=== PATIENT | female | born 1985 | race Two or more races ===

== ENCOUNTER → 2024-01-20 | Outpatient (BNVA) | payer MEDICAID, SELFPAY | END | disposition home or self-care (01) | PROVIDERS: PCP Nurse Practitioner Family; Referring Provider Nurse Practitioner Family; Visit Provider Nurse Practitioner Family | DX: Z23 Encounter for immunization (principal); Z30.016 Encounter for initial prescription of transdermal patch hormonal contraceptive device | CPT/HCPCS: 90471; 90686; 99213 ==

== ENCOUNTER → 2024-03-17 | Outpatient (BNVA) | payer MEDICAID, SELFPAY | END | disposition home or self-care (01) | PROVIDERS: PCP Nurse Practitioner Family; Referring Provider Nurse Practitioner Family; Visit Provider Nurse Practitioner Family | DX: Z71.2 Person consulting for explanation of examination or test findings (principal); R73.03 Prediabetes; E78.1 Pure hyperglyceridemia; R94.5 Abnormal results of liver function studies; R68.89 Other general symptoms and signs | CPT/HCPCS: 99212; G0463 ==

== ENCOUNTER → 2024-04-02 | Outpatient (BNVA) | payer MEDICAID, SELFPAY | END | disposition home or self-care (01) | PROVIDERS: PCP Nurse Practitioner Family; Referring Provider Nurse Practitioner Family; Visit Provider Nurse Practitioner Family | DX: N39.0 Urinary tract infection, site not specified (principal) | CPT/HCPCS: 81001; 81025; 96372; 99214; A4216; J0696; J1885 ==

== ENCOUNTER → 2024-04-09 | Outpatient (BNVA) | payer MEDICAID, SELFPAY | END | disposition home or self-care (01) | PROVIDERS: PCP Nurse Practitioner Family; Referring Provider Nurse Practitioner Family; Visit Provider Nurse Practitioner Family | DX: Z71.2 Person consulting for explanation of examination or test findings (principal) | CPT/HCPCS: 99212; G0463 ==

== ENCOUNTER → 2024-04-30 | Outpatient (BNVA) | payer MEDICAID, SELFPAY | END | disposition home or self-care (01) | PROVIDERS: PCP Nurse Practitioner Family; Referring Provider Nurse Practitioner Family; Visit Provider Nurse Practitioner Family | DX: Z71.2 Person consulting for explanation of examination or test findings (principal); D50.8 Other iron deficiency anemias | CPT/HCPCS: 99212; G0463 ==

== ENCOUNTER → 2024-07-20 | Outpatient (BNVA) | payer MEDICAID, SELFPAY | END | disposition home or self-care (01) | PROVIDERS: PCP Nurse Practitioner Family; Referring Provider Nurse Practitioner Family; Visit Provider Nurse Practitioner Family | DX: Z32.01 Encounter for pregnancy test, result positive (principal) | CPT/HCPCS: 81025; 99214 ==

== ENCOUNTER 2024-08-03 13:24 | Outpatient (AMB) | payer MEDICAID, SELFPAY ==
--- NOTE | 2024-08-03 13:43 | AMB.OBINITIA ---
Vital Signs 08/03/24 13:54 Height 1.51 m Height Method Stated Weight 64.92 kg Weight Measurement Method Standing Scale BMI 28.4 BP 115/76 Blood Pressure Source Automatic Cuff Blood Pressure Location Right Upper Arm Position Sitting Respiration 17 Pulse 67 Pulse Source Monitor Temp 97.7 F Temp Source Temporal Artery Scan Pulse Oximetry (%) 98 Oxygen Delivery Method Room Air Allergies/Home Meds Allergies & Medications Allergies No Known Allergies Allergy (Verified 08/03/24 13:56) Medication Reconciliation vit 168-iron 27 mg-folic acid 800 mcg-omega3 235 mg capsule (One-A-Day -1) 1 cap PO QDAY 30 days #30 caps 07/20/24 [Rx Confirmed 08/03/24] Intake Visit Data Collection New Patient or Established: Established Patient (seen at [facility] within 3 years) Reason for Visit:: OBI Seen by Clinical Staff ONLY (RN/MA): No Care Trainer Required: No Do You Feel Safe at Home: Yes Authorities Contacted: N/A PCP or OBGYN visit in last 3 months: Yes Date of Last PCP or OBGYN visit: 07/20/24 Hx Now: Yes Are you currently on any form of Control: No Pain Present Currently: No Pain Scale Used: Pitts-Mccray/Numerical Pain scale:: 0 Smoking Status Smoking Status: Never smoker Questionnaires Covid-19 Vaccine Questionnaire Has patient been vacinated for Covid-19 Have you been vacinated for Covid-19: Yes PHQ-9 PHQ-2 Over the last 2 weeks, how often have you been bothered by any of the following problems? 1. Little interest or pleasure in doing things: not at all 2. Feeling down, depressed, or hopeless: not at all Total score: 0 PHQ-9 3. Trouble falling or staying asleep, or sleeping too much: Not at all 4. Feeling tired or having little energy: Not at all 5. Poor appetite or overeating: Not at all 6. Feeling bad about yourself - or that you are a failure or have let yourself or your family down: Not at all 7. Trouble concentrating on things, such as reading the newspaper or watching television: Not at all 8. Moving or speaking so slowly that other people could have noticed? - Or the opposite - being so fidgety or restless that you have been moving around a lot more than usual: not at all 9. Thoughts that you would be better off or of hurting yourself in some way: Not at all Total score: 0 If you checked off any problems, how difficult have these problems made it for you to do your work, take care of things at home, or get along with other people?: not difficult at all Source: Developed by Drs. Bright Guerra, Rachana Tadeo, Alberto Salazar and colleagues, with an educational hortencia from [employer]. Depression screen completed yes Social History Living Situation History Marital Status: Lives With: Spouse Housing: House Tobacco History Smoking Status: Never smoker Second Hand Smoke Exposure: No Alcohol History Alcohol Intake: Current Alcohol Intake Frequency: holidays/special occasions only Substance Use History Substance Use: NEVER Domestic Abuse History Do You Feel Safe at Home: Yes History of Present Illness HPI Narrative Ptia Jo, a 39-year-old female, , presents for her initial visit. She is approximately 7 weeks based on her last menstrual period of May 25, 2024. The patient reports her is progressing well overall. She experiences some nausea but denies vomiting. Pita mentions having anemia, which was previously diagnosed. She denies any cramping, bleeding, or spotting during this . The patient is currently taking vitamins but reports stopping iron supplementation as advised by a previous provider. Pita's obstetrical history is significant for four full-term vaginal deliveries and one miscarriage. She denies any complications such as gestational diabetes or hypertension in her previous pregnancies. However, she reports a family history of cardiac issues in her daughters - one had tetralogy of Fallot, and another had a heart murmur. Apart from anemia, Pita denies any other medical issues outside of . She appears to be managing her current symptoms well and has not reported any significant impact on her daily functioning. Obstetric History - GTPAL: L4 - Current : - Gestational age: 7 weeks 3 days by ultrasound - Estimated due date: Approximately mid-February 2025 (based on LMP of May 25, 2024) - No current complaints of cramping, bleeding, or spotting - history: - Four previous vaginal deliveries, all resulting in living children - No history of gestational diabetes or hypertension in previous pregnancies Medical History - Anemia (current) Medications and Supplements - vitamins - Iron - Discontinued. Patient was told to stop taking it. Social History - Children: Has 4 children Review of Systems Gastrointestinal: Positive for nausea, negative for vomiting. 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 Reports mild nausea, no vomiting or bleeding. FHx of congenital heart defects (ToF, murmur in daughters). Anemia noted; stopped iron per previous instructions. FHR 162 bpm. Plan: Labs and genetic testing ordered?draw after 9w GA. F/u in 4 weeks with ultrasound. Prescribed vitamins; iron to be reassessed after labs. Referred to [facility] for detailed anatomy scan and echocardiogram due to FHx of CHD. Prescriptions sent to [facility]. Dates for labs and SEVEN written for patient. Corrected Estimated Due Date Summary LMPUnknownEDD by LMP? Ultrasound #112/GA at us [id number] by US #1: 08/22/2024 Ultrasound #[id number] at us [id number] by US #2: 08/22/2024 Final EDD08/22/2024asis for Final EDD12w Sono (confirmed by 15w) Menstrual History Menstrual reliability: unknown Flow: light Menstrual regularity: irregular Monthly: No Age at menarche: 17 On control pills at conception: No OB History : 6 Para: 4 Hx # Pregnancies: 1 Hx Total # of Abortions (Spontaneous & Elective): 1 # of Living Children: 4 Delivery History 1st : Child's name: ASIYA ADAMS date: 04/[birth year]/04 sex: male Gestational age at delivery (weeks): 40 Delivery type: vaginal weight (lbs): 3175.147 g weight (oz): 198.447 g History of depression before or after : No 2nd : Child's name: JOHN ADAMS date: 10/27/07 sex: male Gestational age at delivery (weeks): 38 Delivery type: vaginal weight (lbs): 2267.962 g History of depression before or after : No 3rd : Child's name: PRIMO ADAMS date: 10/29/14 sex: female Gestational age at delivery (weeks): 40 Delivery type: vaginal weight (lbs): 3175.147 g History of depression before or after : No Additional comments: 10YR DAUGHTER HAS HX OF TETRALOGY OF FALLOT 4th : Child's name: JENNIFER ADAMS date: 04/13[birth year]20 sex: female Gestational age at delivery (weeks): 40 Delivery type: vaginal weight (lbs): 3175.147 g History of depression before or after : No Additional comments: 4YR HX OF HEART MURMUR Infection History & Risk Evaluation History of STDs: none HIV risk evaluation: low risk Hepatitis B risk evaluation: low risk Patient or partner has history of Genital Herpes: No Varicella/chicken pox status: unknown Genetic Screening & History Genetic Screening/Teratology Counseling - Includes patient, baby's father, or anyone in either family with: 1. Patient's age 35 years or older as of estimated date of delivery: Yes 2. Thalassemia (Salvadorean, Citizen Of [place], Mediterranean, or Background); MCV less than 80: No 3. Neural Tube Defect (Meningomyelocele, Spina Bifida, or Anencephaly): No 4. Congenital Heart Defect: Yes 5. Down Syndrome: No 6. Maurice-Sachs (Ashkenazi Samaritan, Cajun, Frisian [place]): No 7. Melanie Disease (Ashkenazi Samaritan): No 8. Familial Dysautonomia (Ashkenazi Samaritan): No 9. Sickle Cell Disease or Trait (): No 10. Hemophilia or other blood disorders: No 11. Muscular Dystrophy: No 12. Cystic Fibrosis: No 13. Duane's Chorea: No 14. Mental Retardation/Autism: No 15. Other inherited genetic or chromosomal disorder: No 16. Maternal Metabolic Disorder (EG,TYPE 1 Diabetes, PKU): No 17. Patient or baby's father had a child with defects not listed above: No 18. Recurrent loss or a stillbirth: No 19. Medications (including supplements, vitamins, herbs or otc drugs)/illicit/recreational drugs/alcohol since last menstrual period: No 20. Any other: No Infection History 1. Live with someone with TB or exposed to TB: No 2. Rash or viral illness since last menstrual period: No 3. Hepatitis B,C: No Other (see comments) Source: [employer] Exam General Limitations: no limitations General Appearance: alert, in no apparent distress and comfortable Head Head exam: atraumatic and normocephalic Eye Eye exam: Present normal appearance, PERRL and EOMI Neck Neck exam: Present normal inspection and full ROM Chest Chest inspection: Present normal inspection and symmetric chest wall rise; Absent tenderness Resp Respiratory exam: Present normal lung sounds bilaterally; Absent respiratory distress Card Cardiovascular exam: Present regular rate and normal rhythm Abdominal Abdominal exam: Present soft and normal bowel sounds; Absent tenderness, guarding, rebound or rigidity Neuro Neurological exam: Present alert and oriented X3 Psych Psychiatric exam: Present normal affect Results Objective Imaging: - Date: FriAug 03 2024 - Ultrasound: - Gestational age: 7 weeks and 3 days - heartbeat: 162 bpm (normal) - sac and fetus visualized Office Procedures OB Clinic LOC & Office Proc's Nursing/Assessment Patient Status: Established Patient OB Clinic Nursing Assessment: Medication Reconciliation, Update PMH in EMR and Vital Signs OB Clinic Coordination of Care: Complex Care and Chronic Disease 1-5, Consent,records obtained, informed consent, Education Simp Pt/Fam, Lab and Imaging orders and Staff clarify orders Special Needs: Heart tones Established Patient Charge Established Patient Point Assignment: 130 Established Patient Point Charge: EP Level 4 (120-155) Assessment & Plan Diagnosis / Problem List (1) Supervision of high risk , unspecified, first trimester: Status: Acute (2) AMA (advanced maternal age) multigravida 35+: Status: Acute Plan Problem List - - Anemia - Nausea Assessment - Intrauterine at 7 weeks and 3 days gestation - L4 - Anemia - Family history of congenital heart defects in female offspring (tetralogy of Fallot and heart murmur) - Nausea without vomiting - Last menstrual period: May 25, 2024 - heart rate: 162 bpm Plan - Provided lab orders for labs and genetic testing - Instructed patient to wait until 9 weeks gestation to complete lab tests - Scheduled follow-up appointment in 4 weeks - Planned ultrasound at next appointment - Will review all test results at next appointment - Prescribed vitamins - Will assess anemia levels before prescribing iron supplementation - Wrote due date and date for blood tests on patient paperwork - Ordered prescriptions to be sent to [facility] - REFERRAL TO MATERNAL- MEDICINE: Due to family history of congenital heart defects (tetralogy of Fallot and heart murmur) - Detailed anatomy ultrasound recommended - Cardiac Echocardiogram to be considered and coordinated
[2024-08-03 13:54] VITALS: BP 115/76; PULSE 67; RESP 17; TEMP 36.5; O2SAT 98; BMI 28.4
== END 2024-08-03 14:07 | disposition home or self-care (01) ==
LOC: HODSOBC 13:24
PROVIDERS: PCP Nurse Practitioner Family; Referring Provider Nurse Practitioner Family; Supervising Provider Obstetrics & Gynecology; Visit Provider Obstetrics & Gynecology
DX: O09.521 Supervision of elderly multigravida, first trimester (principal); O09.891 Supervision of other high risk pregnancies, first trimester; O99.011 Anemia complicating pregnancy, first trimester; Z3A.01 Less than 8 weeks gestation of pregnancy; O09.291 Supervision of pregnancy with other poor reproductive or obstetric history, first trimester; Z82.79 Family history of other congenital malformations, deformations and chromosomal abnormalities
CPT/HCPCS: 99214; G0463

== ENCOUNTER 2024-09-28 14:58 | Outpatient (AMB) | payer MEDICAID, SELFPAY ==
[2024-09-28 15:09] VITALS: BP 107/71; PULSE 89; RESP 17; TEMP 36.4; O2SAT 99; BMI 29.7
--- NOTE | 2024-09-28 15:09 | AMB.OBVISIT ---
Vital Signs 09/28/24 15:09 Height 1.51 m Height Method Measured Weight 67.699 kg Weight Measurement Method Standing Scale BMI 29.7 BP 107/71 Blood Pressure Source Automatic Cuff Blood Pressure Location Right Upper Arm Position Sitting Respiration 17 Pulse 89 Pulse Source Monitor Temp 97.5 F Temp Source Temporal Artery Scan Pulse Oximetry (%) 99 Oxygen Delivery Method Room Air Allergies/Home Meds Allergies & Medications Allergies No Known Allergies Allergy (Verified 11/04/24 15:15) Medication Reconciliation vitamins with calcium no.72-iron 27 mg-folic acid 1 mg tablet ( Vitamins Plus Low Iron) 1 tab PO QDAY 90 days #90 tabs 08/19/24 [Rx Confirmed 11/04/24] Intake Visit Data Collection New Patient or Established: Established Patient (seen at [facility] within 3 years) Reason for Visit:: OBC Consent obtained for Telemed Visit: No Seen by Clinical Staff ONLY (RN/MA): No Shipping Coordinator Required: No Do You Feel Safe at Home: Yes Authorities Contacted: N/A PCP or OBGYN visit in last 3 months: Yes Date of Last PCP or OBGYN visit: 08/03/24 Hx Now: Yes Are you currently on any form of Control: No Pain Present Currently: No Pain Scale Used: Pitts-Mccray/Numerical Pain scale:: 0 Smoking Status Smoking Status: Never smoker Questionnaires Covid-19 Vaccine Questionnaire Has patient been vacinated for Covid-19 Have you been vacinated for Covid-19: No PHQ-9 PHQ-2 Over the last 2 weeks, how often have you been bothered by any of the following problems? 1. Little interest or pleasure in doing things: not at all PHQ-9 8. Moving or speaking so slowly that other people could have noticed? - Or the opposite - being so fidgety or restless that you have been moving around a lot more than usual: not at all Source: Developed by Drs. Bright Guerra, Rachana Tadeo, Alberto Salazar and colleagues, with an educational hortencia from [employer]. 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 Reports mild nausea, no vomiting or bleeding. FHx of congenital heart defects (ToF, murmur in daughters). Anemia noted; stopped iron per previous instructions. FHR 162 bpm. Plan: Labs and genetic testing ordered?draw after 9w GA. F/u in 4 weeks with ultrasound. Prescribed vitamins; iron to be reassessed after labs. Referred to [facility] for detailed anatomy scan and echocardiogram due to FHx of CHD. Prescriptions sent to [facility]. Dates for labs and SEVEN written for patient. Corrected Estimated Due Date Summary LMPUnknownEDD by LMP? Ultrasound #112/GA at us [id number] by US #1: 08/22/2024 Ultrasound #[id number] at us [id number] by US #2: 08/22/2024 Final EDD08/22/2024asis for Final EDD12w Sono (confirmed by 15w) 09/28/24 <del>?</del> 17w 2d 67.699 kg 107/71 149 - Patient reports overall feeling well with her . - She experiences occasional cramping. - Denies nausea, bleeding, or spotting. - No other -related symptoms or concerns reported. - Follow-up appointment scheduled in one month - Ultrasound scheduled for November 23 at [facility] - Await results of 20-week or later ultrasound to confirm cardiac findings SEVEN Calculator Estimated Delivery Date Method Current WG Current Estimate 03/06/25 Ultrasound #1 27w 2d Other Estimates 03/01/25 LMP (Uncertain) 28w 0d Notes Visit Date: 09/28/24 Last Updated by: Jonathon Lott MD Laboratory, Imaging, and Diagnostic Test Results - Date: 09/09/2024 - Hepatitis B: Negative - Hepatitis C: Negative - RPR: Non-reactive - Rubella: Non-immune - Blood group: A positive - Antibody screen: Negative - HIV: Negative - Gonorrhea: Negative - Chlamydia: Negative - Maternity 21: Negative for trisomy - Cystic fibrosis screening: Negative - Fragile X-gene: Negative - gender (blood test): Female - Ultrasound: - heartbeat: 149 bpm (normal) Visit Date: 08/03/24 Last Updated by: Jonathon Lott MD Corrected Estimated Due Date Summary LMP05/25/2024EDD by LMP03/01/2025 Ultrasound #[id number] at us [id number] by US #1: 03/19/2025 Final EDD6Basis for Final [id number] Sono (redated from LMP) Previous Section?No Assessment & Plan Diagnosis / Problem List (1) uterine contractions in second trimester, antepartum: Status: Acute Plan Problem List - , first trimester - Rubella non-immune status Assessment at 15 weeks and 3 days gestation presenting for routine care. heart rate 149 bpm, within normal limits. Recent blood tests (09/09/2024) show: Hepatitis B negative, Hepatitis C negative, RPR non-reactive, Rubella non-immune, blood type A positive, antibody screen negative, HIV negative, gonorrhea negative, chlamydia negative. Genetic screening results: Maternity 21 negative for trisomy, cystic fibrosis screening negative, Fragile X-gene negative. gender reported as female. Patient reports occasional cramping but denies bleeding or spotting. No nausea reported. Early ultrasound noted a cardiac finding requiring confirmation at 20 weeks or later. Plan - Follow-up appointment scheduled in one month - Ultrasound scheduled for November 23 at [facility] - Await results of 20-week or later ultrasound to confirm cardiac findings This is not an initial visit and the gestational age is less than 20 weeks, so the provided format is not applicable to this patient encounter. Based on the transcript, this appears to be a routine visit for a patient at 15 weeks and 3 days gestation. The format provided is intended for later visits after 20 weeks gestation.
== END 2024-09-28 15:40 | disposition home or self-care (01) ==
LOC: HODSOBC 14:58
PROVIDERS: Supervising Provider Obstetrics & Gynecology; Visit Provider Obstetrics & Gynecology
DX: O09.892 Supervision of other high risk pregnancies, second trimester (principal); O47.02 False labor before 37 completed weeks of gestation, second trimester; O09.522 Supervision of elderly multigravida, second trimester; Z3A.17 17 weeks gestation of pregnancy
CPT/HCPCS: 99214; G0463

== ENCOUNTER 2024-11-04 15:03 | Outpatient (AMB) | payer MEDICAID, SELFPAY ==
[2024-11-04 15:13] VITALS: BP 112/74; PULSE 79; RESP 16; TEMP 36.5; O2SAT 98; BMI 30.7
--- NOTE | 2024-11-04 15:13 | OBCLNT_ITS ---
Vital Signs 11/04/24 15:13 Height 1.51 m Height Method Stated Weight 70.08 kg Weight Measurement Method Standing Scale BMI 30.7 BP 112/74 Blood Pressure Source Automatic Cuff Blood Pressure Location Left Upper Arm Position Sitting Respiration 16 Pulse 79 Pulse Source Monitor Temp 97.7 F Temp Source Oral Pulse Oximetry (%) 98 Oxygen Delivery Method Room Air Allergies/Home Meds Allergies & Medications Allergies No Known Allergies Allergy (Verified 12/07/24 15:58) Medication Reconciliation vitamins with calcium no.72-iron 27 mg-folic acid 1 mg tablet ( Vitamins Plus Low Iron) 1 tab PO QDAY 90 days #90 tabs 08/19/24 [Rx Confirmed 12/07/24] Intake Visit Data Collection New Patient or Established: Established Patient (seen at [facility] within 3 years) Reason for Visit:: CARE Seen by Clinical Staff ONLY (RN/MA): No Gambling Counsellor Required: No Do You Feel Safe at Home: Yes Authorities Contacted: N/A PCP or OBGYN visit in last 3 months: Yes Hx Now: Yes Are you currently on any form of Control: No Pain Present Currently: No Pain Scale Used: Pitts-Mccray/Numerical Pain scale:: 0 Smoking Status Smoking Status: Never smoker Questionnaires Covid-19 Vaccine Questionnaire Has patient been vacinated for Covid-19 Have you been vacinated for Covid-19: Yes PHQ-9 PHQ-2 Over the last 2 weeks, how often have you been bothered by any of the following problems? 1. Little interest or pleasure in doing things: not at all 2. Feeling down, depressed, or hopeless: not at all Total score: 0 PHQ-9 3. Trouble falling or staying asleep, or sleeping too much: Not at all 4. Feeling tired or having little energy: Not at all 5. Poor appetite or overeating: Not at all 6. Feeling bad about yourself - or that you are a failure or have let yourself or your family down: Not at all 7. Trouble concentrating on things, such as reading the newspaper or watching television: Not at all 8. Moving or speaking so slowly that other people could have noticed? - Or the opposite - being so fidgety or restless that you have been moving around a lot more than usual: not at all 9. Thoughts that you would be better off or of hurting yourself in some way: Not at all Total score: 0 Source: Developed by Drs. Bright Guerra, Rachana Tadeo, Alberto Salazar and colleagues, with an educational hortencia from [employer] 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 Reports mild nausea, no vomiting or bleeding. FHx of congenital heart defects (ToF, murmur in daughters). Anemia noted; stopped iron per previous instructions. FHR 162 bpm. Plan: Labs and genetic testing ordered?draw af ter 9w GA. F/u in 4 weeks with ultrasound. Prescribed vitamins; iron to be reassessed after labs. Referred to [facility] for detailed anatomy scan and echocardiogram due to FHx of CHD. Prescriptions sent to [facility]. Dates for labs and SEVEN written for patient. Corrected Estimated Due Date Summary LMPUnknownEDD by LMP? Ultrasound #112/GA at us [id number] by US #1: 08/22/2024 Ultrasound #201/06/2024GA at us [id number] by US #2: 08/22/2024 Final EDD08/22/2024asis for Final EDD12 w Sono (confirmed by 15w) 08/05/25 -?-?-?-?-?--?-?-?-?-?-?-?- 17w 2d 67.699 kg 107/71 149 - Patient reports overall feeling well with her . - She experiences occasional cramping. - Denies nausea, bleeding, or spotting. - No other -related symptoms or concerns reported. - Follow-up appointment scheduled in one month - Ultrasound scheduled for October h at [facility] - Await results of 20-week or later ultr asound to confirm cardiac findings 11/04/24 -?-?-?-?-?-?-?-?-?-?-?-?- 22w 4d 70.08 kg 112/74 occasional cephalic 22 145 active - She reports improvement in nausea since her last visit. - She experiences back pain that occurs sometimes, not constantly. - The patient has started feeling movements. 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 - Obtain disability forms from Social Security office, complete patient portion, and return for physician completion with start date from tomorrow - Glucose tolerance test ordered for criselda goldman screening - Maternity support belt recommended, av ailable at [facility] - echocardiogram scheduled for 10/27 due to suspicion for VSD - Continue cervical length surveillance given history of births 12/07/24 -?-?-?-?-?-?-?-?-?-?-?-?- 27w 2d 70.987 kg 99/62 occasional cephalic 27 160 - She reports no contractions, cramping, or pressure other than what is expected for her gestational age. - Patient has been undergoing cervical l ength monitoring, with last measurement being 4.7 centimeters. - Baby had suspected ventricular septal defect (VSD) requiring echocardiogram evaluation. - Patient reports that internal ultrasou nds to check cervix have been discontinued. - She has an upcoming regular ultrasound scheduled at [facility] in approximately 10 days. - Schedul e her next appointment in 4 weeks - After the 4-week appointment, transiti on to every 2 weeks visits - Continue regular ultrasounds at [facility] (next appointment in approximately 10 days) - Order antepartum testing referral - Glucose diabetes test results to be re viewed and reported to patient SEVEN Calculator Estimated Delivery Date Method Current WG Current Estimate 03/06/25 Ultrasound #1 27w 6d Other Estimates 03/01/25 LMP (Uncertain) 28w 4d Notes Visit Date: 12/07/24 Last Updated by: Jonathon Lott MD - echocardiogram (November 23): Normal echocardiogram, normal segmental intracardiac anatomy, patent foramen ovale with physiologic shunt, large PDA with physiologic shunt, normal chamber dimensions, good ventricular function, no evidence of arrhythmia Visit Date: 11/04/24 Last Updated by: Jonathon Lott MD - Date: 10/05/2024 - Maternal medicine ultrasound: Transabdominal cervical length 5 cm, patient declined transvaginal exam, estimated due date revised to 03/06/2025 based on 15 weeks 1 day gestational age, remainder of exam within normal limits - Date: 10/27/2024 - Detailed anatomy survey ultrasound: Anatomy survey within normal limits, transvaginal cervical length 4.69 cm, estimated due date 03/06/2025, suspicion for VSD noted Problem List - at 20 weeks 5 days gestation - Back pain - Advanced maternal age - Previous - Intrauterine demise - Suspected ventricular septal defect Visit Date: 09/28/24 Last Updated by: Jonathon Lott MD Laboratory, Imaging, and Diagnostic Test Results - Date: 09/09/2024 - Hepatitis B: Negative - Hepatitis C: Negative - RPR: Non-reactive - Rubella: Non-immune - Blood group: A positive - Antibody screen: Negative - HIV: Negative - Gonorrhea: Negative - Chlamydia: Negative - Maternity 21: Negative for trisomy - Cystic fibrosis screening: Negative - Fragile X-gene: Negative - gender (blood test): Female - Ultrasound: - heartbeat: 149 bpm (normal) Visit Date: 08/03/24 Last Updated by: Jonathon Lott MD Corrected Estimated Due Date Summary LMP05/25/2024EDD by LMP03/01/2025 Ultrasound #GA at us [id number] by US #1: 03/19/2025 Final EDD6Basis for Final [id number] Sono (redated from LMP) Previous Section?No Assessment & Plan Diagnosis / Problem List (1) uterine contractions in second trimester, antepartum: Status: Acute (2) AMA (advanced maternal age) multigravida 35+: Status: Acute Plan Problem List - at 20 weeks 5 days gestation - Back pain - Advanced maternal age - Previous - Intrauterine demise - Suspected ventricular septal defect Assessment 20 weeks 5 days intrauterine in a 6 4 para patient with back pain attributed to ligament stretching and old section scar pulling, which is expected to resolve by 26-27 weeks gestation. Patient has significant obstetric history including previous births at 24 and 32 weeks, intrauterine demise at 24 weeks due to Down syndrome in 2005, and labor at 32 weeks in 2007. Current shows suspicion for ventricular septal defect with echocardiogram scheduled, and patient has declined amniocentesis. Maternal medicine ultrasounds show normal anatomy survey with cervical length measurements of 5 cm transabdominally and 4.69 cm transvaginally. 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 heart rate is normal at 145 bpm with patient reporting movement. Plan - Obtain disability forms from [employer] office, complete patient portion, and return for physician completion with start date from tomorrow - Glucose tolerance test ordered for diabetes screening - Maternity support belt recommended, available at [facility] - echocardiogram scheduled for 11/23/2024 due to suspicion for VSD - Continue cervical length surveillance given history of births 1. Progress Reviewed gestational age (20 weeks 5 days), growth, and heart rate (145 bpm normal). Planned frequent visits (every 2 weeks until 36 weeks, then weekly). 2. Instructed patient to monitor movements and report decreases immediately. 3. Testing Counseled on routine third-trimester labs per guidelines including diabetes glucose test. Discussed potential need for ultrasound or monitoring based on risk factors. 4. Preeclampsia Precaution Educated on preeclampsia signs: severe headache, vision changes, right upper quadrant pain, sudden swelling. Advised urgent reporting of symptoms and discussed blood pressure monitoring if high risk. 5. Labor Precautions Reviewed labor signs: regular contractions, pelvic pressure, back pain, bleeding, or fluid leakage. Instructed to seek immediate care for these symptoms. 6. Lifestyle and Delivery Preparation Reinforced vitamins, nutrition, and safe activity. Discussed plan, pain management, and . Advised on labor preparation (e.g., hospital bag) and expectations. 7. Psychosocial Support Assessed emotional well-being and offered resources for mental health or parenting support.
== END 2024-11-04 15:57 | disposition home or self-care (01) ==
PROVIDERS: Supervising Provider Obstetrics & Gynecology; Visit Provider Obstetrics & Gynecology
DX: O09.522 Supervision of elderly multigravida, second trimester (principal); O09.892 Supervision of other high risk pregnancies, second trimester; O35.BXX0 Maternal care for other (suspected) fetal abnormality and damage, fetal cardiac anomalies, not applicable or unspecified; O47.02 False labor before 37 completed weeks of gestation, second trimester; O09.212 Supervision of pregnancy with history of pre-term labor, second trimester; O09.292 Supervision of pregnancy with other poor reproductive or obstetric history, second trimester; O99.891 Other specified diseases and conditions complicating pregnancy; M54.9 Dorsalgia, unspecified; Z3A.22 22 weeks gestation of pregnancy
CPT/HCPCS: 99215; G0463

== ENCOUNTER 2024-12-07 15:33 | Outpatient (AMB) | payer MEDICAID, SELFPAY ==
[2024-12-07 15:57] VITALS: BP 99/62; PULSE 76; RESP 18; TEMP 36.2; O2SAT 97; BMI 31.1
--- NOTE | 2024-12-07 15:57 | OBCLNT_ITS ---
Vital Signs 12/07/24 15:57 Height 1.51 m Height Method Stated Weight 70.987 kg Weight Measurement Method Standing Scale BMI 31.1 BP 99/62 Blood Pressure Source Automatic Cuff Blood Pressure Location Left Upper Arm Position Sitting Respiration 18 Pulse 76 Pulse Source Monitor Temp 97.2 F Temp Source Oral Pulse Oximetry (%) 97 Oxygen Delivery Method Room Air Allergies/Home Meds Allergies & Medications Allergies No Known Allergies Allergy (Verified 12/07/24 15:58) Medication Reconciliation vitamins with calcium no.72-iron 27 mg-folic acid 1 mg tablet ( Vitamins Plus Low Iron) 1 tab PO QDAY 90 days #90 tabs 08/19/24 [Rx Confirmed 12/07/24] Intake Visit Data Collection New Patient or Established: Established Patient (seen at [facility] within 3 years) Reason for Visit:: OBC Seen by Clinical Staff ONLY (RN/MA): No 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 1. Little interest or pleasure in doing things: not at all 2. Feeling down, depressed, or hopeless: not at all Total score: 0 PHQ-9 3. Trouble falling or staying asleep, or sleeping too much: Not at all 4. Feeling tired or having little energy: Not at all 5. Poor appetite or overeating: Not at all 6. Feeling bad about yourself - or that you are a failure or have let yourself or your family down: Not at all 7. Trouble concentrating on things, such as reading the newspaper or watching television: Not at all 8. Moving or speaking so slowly that other people could have noticed? - Or the opposite - being so fidgety or restless that you have been moving around a lot more than usual: not at all 9. Thoughts that you would be better off or of hurting yourself in some way: Not at all Total score: 0 If you checked off any problems, how difficult have these problems made it for you to do your work, take care of things at home, or get along with other people?: not difficult at all Source: Developed by Drs. Bright Guerra, Rachana Tadeo, Alberto Salazar and colleagues, with an educational hortencia from [employer]. 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 Reports mild nausea, no vomiting or bleeding. FHx of congenital heart defects (ToF, murmur in daughters). Anemia noted; stopped iron per previous instructions. FHR 162 bpm. Plan: Labs and genetic testing ordered?draw af ter 9w GA. F/u in 4 weeks with ultr asound. Prescribed vitamins; iron to be reassessed after labs. Referred to [facility] for detailed anatomy scan and echocardiogram due to FHx of CHD. Prescriptions sent to [facility]. Dates for labs and SEVEN written for patient. Corrected Estimated Due Date Summary LMPUnknownEDD by LMP? Ultrasound #112/GA at us [id number] by US #1: 08/22/2024 Ultrasound #201/06/2024GA at us [id number] by US #2: 08/22/2024 Final EDD5Basis for Final EDD12 w Sono (confirmed by 15w) 09/28/24 -?-?-?-?-?-?-?-?-?-?-?-?- 17w 2d 67.699 kg 107/71 149 - Patient reports overall feeling well with her . - She experiences occasional cramping. - Denies nausea, bleeding, or spotting. - No other -related symptoms or concerns reported. - Follow-up appointment scheduled in one month - Ultrasound scheduled for October h at [facility] - Await results of 20-week or later ultr asound to confirm cardiac findings 12/07/24 -?-?-?-?-?-?-?-?-?-?-?-?- 27w 2d 70.987 kg 99/62 occasional cephalic 27 160 - She reports no contractions, cramping, or pressure other than what is expected for her gestational age. - Patient has been undergoing cervical l ength monitoring, with last measurement being 4.7 centimeters. - Baby had suspected ventricular septal defect (VSD) requiring echocardiogram evaluation. - Patient reports that internal ultrasou nds to check cervix have been discontinued. - She has an upcoming regular ultrasound scheduled at [facility] in approximately 10 days. - Schedul e her next appointment in 4 weeks - After the 4-week appointment, transiti on to every 2 weeks visits - Continue regular ultrasounds at [facility] (next appointment in approximately 10 days) - Order antepartum testing referral - Glucose diabetes test results to be re viewed and reported to patient SEVEN Calculator Estimated Delivery Date Method Current WG Current Estimate 03/06/25 Ultrasound #1 27w 3d Other Estimates 03/01/25 LMP (Uncertain) 28w 1d Notes Visit Date: 12/07/24 Last Updated by: Jonathon Lott MD - echocardiogram (November 23): Normal echocardiogram, normal segmental intracardiac anatomy, patent foramen ovale with physiologic shunt, large PDA with physiologic shunt, normal chamber dimensions, good ventricular function, no evidence of arrhythmia Visit Date: 09/28/24 Last Updated by: Jonathon Lott MD Laboratory, Imaging, and Diagnostic Test Results - Date: 09/09/2024 - Hepatitis B: Negative - Hepatitis C: Negative - RPR: Non-reactive - Rubella: Non-immune - Blood group: A positive - Antibody screen: Negative - HIV: Negative - Gonorrhea: Negative - Chlamydia: Negative - Maternity 21: Negative for trisomy - Cystic fibrosis screening: Negative - Fragile X-gene: Negative - gender (blood test): Female - Ultrasound: - heartbeat: 149 bpm (normal) Visit Date: 08/03/24 Last Updated by: Jonathon Lott MD Corrected Estimated Due Date Summary [id number] by LMP03/01/2025 Ultrasound #[id number] at us [id number] by US #1: 03/19/2025 Final EDD03/19/2025asis for Final [id number] Sono (redated from LMP) Previous Section?No Office Procedures OBC Clinic LOC & Office Proc's Nursing/Assessment Patient Status: Established Patient OB Clinic Nursing Assessment: Medication Reconciliation, Update PMH in EMR and Vital Signs OB Clinic Coordination of Care: Consent,records obtained, informed consent, Education Simp Pt/Fam, Lab and Imaging orders, Results/Orders obtained and Staff clarify orders Special Needs: Heart tones Established Patient Charge Established Patient Point Assignment: 110 Established Patient Point Charge: EP Level 3 (80-115) Assessment & Plan Diagnosis / Problem List (1) uterine contractions in second trimester, antepartum: Status: Acute Plan Problem List - , 27 weeks 2 days gestation - History of intrauterine demise - History of pre-tumors Assessment 27-week 2-day gestation with history of prior labor and intrauterine demise, currently under cervical length monitoring with last measurement of 4.7 centimeters. Previously suspected ventricular septal defect has been ruled out by echocardiogram performed on November 23, which demonstrated normal segmental intracardiac anatomy, patent foramen ovale with physiologic shunt, large patent ductus arteriosus with physiologic shunt, normal chamber dimensions, and good ventricular function with no evidence of arrhythmia. Patient reports no contractions, cramping, or abnormal pressure. heart rate is 160 beats per minute, which is within normal limits. Glucose diabetes screening has been completed with results pending review. Plan - Schedule her next appointment in 4 weeks - After the 4-week appointment, transition to every 2 weeks visits - Continue regular ultrasounds at [facility] (next appointment in approximately 10 days) - Order antepartum testing referral - Glucose diabetes test results to be reviewed and reported to patient 1. Progress Reviewed gestational age (27 weeks 2 days), growth, and heart rate (160 bpm - normal). Planned frequent visits (every 4 weeks, then every 2 weeks until 36 weeks, then weekly). 2. Instructed patient to monitor her movements and report decreases immediately. 3. Testing Counseled on routine third-trimester labs per guidelines. Glucose diabetes test completed. Discussed potential need for ultrasound or monitoring based on her risk factors. Regular ultrasound scheduled at [facility] in approximately 10 days. 4. Preeclampsia Precaution Educated on preeclampsia signs: severe headache, vision changes, right upper quadrant pain, sudden swelling. Advised urgent reporting of symptoms and discussed blood pressure monitoring if she is high risk. 5. Labor Precautions Reviewed labor signs: regular contractions, pelvic pressure, back pain, bleeding, or fluid leakage. Instructed her to seek immediate care for these symptoms. Patient reports no con tractions, cramping, or pressure beyond expected. 6. Lifestyle and Delivery Preparation Reinforced vitamins, nutrition, and safe activity. Discussed her plan, pain management, and . Advised her on labor preparation (e.g., hospital bag) and expectations. 7. Psychosocial Support Assessed her emotional well-being and offered resources for mental health or parenting support.
== END 2024-12-07 16:10 | disposition home or self-care (01) ==
LOC: HODSOBC 15:33
PROVIDERS: Supervising Provider Obstetrics & Gynecology; Visit Provider Obstetrics & Gynecology
DX: O09.892 Supervision of other high risk pregnancies, second trimester (principal); O47.02 False labor before 37 completed weeks of gestation, second trimester; O09.522 Supervision of elderly multigravida, second trimester; O09.292 Supervision of pregnancy with other poor reproductive or obstetric history, second trimester; Z3A.27 27 weeks gestation of pregnancy
CPT/HCPCS: 99213; G0463

== ENCOUNTER 2025-01-12 10:26 | Outpatient (AMB) | payer MEDICAID, SELFPAY ==
[2025-01-12 10:35] VITALS: BP 101/67; PULSE 82; RESP 18; TEMP 36.2; O2SAT 98; BMI 31.6
--- NOTE | 2025-01-12 10:35 | AMB.OBPNC ---
Vital Signs 01/12/25 10:35 Height 1.51 m Height Method Stated Weight 72.235 kg Weight Measurement Method Standing Scale BMI 31.6 BP 101/67 Blood Pressure Source Automatic Cuff Blood Pressure Location Left Upper Arm Position Sitting Respiration 18 Pulse 82 Pulse Source Monitor Temp 97.2 F Temp Source Oral Pulse Oximetry (%) 98 Oxygen Delivery Method Room Air Allergies/Home Meds Allergies & Medications Allergies No Known Allergies Allergy (Verified 01/12/25 10:37) Medication Reconciliation vitamins with calcium no.72-iron 27 mg-folic acid 1 mg tablet ( Vitamins Plus Low Iron) 1 tab PO QDAY 90 days #90 tabs 08/19/24 [Rx Confirmed 01/12/25] Immunizations Immunizations Flu Vaccine in the Last 12 Months: No Flu Vaccine Exclusion Criteria: No Exclusion Criteria Care OB Visit Log OB Flowsheet Initial Weight: Not Recorded Date <del>?</del> EGA Weight BP Alb Glu CTX Pres Fundal ht FHR Mov Dilation Station Effacement Hx Notes Visit Note 08/03/24 <del>?</del> 9w 2d 64.92 kg 115/76 @7w3d by U/S, LMP 05/25/24, SEVEN mid-Feb 2025. Reports mild nausea, no vomiting or bleeding. FHx of congenital heart defects (ToF, murmur in daughters). Anemia noted; stopped iron per previous instructions. FHR 162 bpm. Plan: Labs and genetic testing ordered?draw after 9w GA. F/u in 4 weeks with ultrasound. Prescribed vitamins; iron to be reassessed after labs. Referred to [facility] for detailed anatomy scan and echocardiogram due to FHx of CHD. [facility] Dates for labs and SEVEN written for patient. Corrected Estimated Due Date Summary LMPUnknownEDD by LMP? Ultrasound #[id number] at us [id number] by US #1: 08/22/2024 Ultrasound #[id number] at us [id number] by US #2: 08/22/2024 Final EDD08/22/2024asis for Final EDD12w Sono (confirmed by 15w) 09/28/24 <del>?</del> 17w 2d 67.699 kg 107/71 149 - Patient reports overall feeling well with her . - She experiences occasional cramping. - Denies nausea, bleeding, or spotting. - No other -related symptoms or concerns reported. - Follow-up appointment scheduled in one month - Ultrasound scheduled for November 23 at [facility] - Await results of 20-week or later ultrasound to confirm cardiac findings 11/04/24 <del>?</del> 22w 4d 70.08 kg 112/74 occasional cephalic 22 145 active - She reports improvement in nausea since her last visit. - She experiences back pain that occurs sometimes, not constantly. - The patient has started feeling movements. 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 - Obtain disability forms from [employer] office, complete patient portion, and return for physician completion with start date from tomorrow - Glucose tolerance test ordered for diabetes screening - Maternity support belt recommended, available at [facility] - echocardiogram scheduled for 11/23/2024 due to suspicion for VSD - Continue cervical length surveillance given history of births 12/07/24 <del>?</del> 27w 2d 70.987 kg 99/62 occasional cephalic 27 160 - She reports no contractions, cramping, or pressure other than what is expected for her gestational age. - Patient has been undergoing cervical length monitoring, with last measurement being 4.7 centimeters. - Baby had suspected ventricular septal defect (VSD) requiring echocardiogram evaluation. - Patient reports that internal ultrasounds to check cervix have been discontinued. - She has an upcoming regular ultrasound scheduled at [facility] in approximately 10 days. - Schedule her next appointment in 4 weeks - After the 4-week appointment, transition to every 2 weeks visits - Continue regular ultrasounds at [facility] (next appointment in approximately 10 days) - Order antepartum testing referral - Glucose diabetes test results to be reviewed and reported to patient 01/12/25 <del>?</del> 32w 3d 72.235 kg 101/67 occasional cephalic 32 143 active - Patient reports no signs of labor at this visit. - She has been having normal transvaginal cervical length measurements during current . - Patient has a personal history of births at 24 weeks ( demise due to Down syndrome) and 32 weeks. - Current course has been significant for uterine size-date discrepancy with unsure last menstrual period. - Patient has personal history of congenital heart malformations and has had children with tetralogy of Fallot and atrial septal defect. - Current baby had suspected ventricular septal defect that was ruled out on maternal- medicine ultrasound. - CBC and RPR labs to be drawn - Tdap vaccination to be administered today - Follow-up appointment in 2 weeks - growth ultrasound scheduled at 34-36 weeks - Continue routine antepartum surveillance - Continue labor precautions SEVEN Calculator Estimated Delivery Date Method Current WG Current Estimate 03/06/25 Ultrasound #1 32w 3d Other Estimates 03/01/25 LMP (Uncertain) 33w 1d Notes Visit Date: 01/12/25 Last Updated by: Jonathon Lott MD Laboratory, Imaging, and Diagnostic Test Results - One-hour glucose tolerance test: 119 mg/dL - [facility] ultrasound (12/15/2024) at 28 weeks gestation: - Estimated weight: 1210 grams (33rd percentile) - Suspected VSD ruled out - Normal transvaginal cervical length measurements - Amniotic fluid slightly elevated but within normal range - Normal anatomy - Normal growth Visit Date: 12/07/24 Last Updated by: Jonathon Lott MD - echocardiogram (November 23): Normal echocardiogram, normal segmental intracardiac anatomy, patent foramen ovale with physiologic shunt, large PDA with physiologic shunt, normal chamber dimensions, good ventricular function, no evidence of arrhythmia Visit Date: 11/04/24 Last Updated by: Jonathon Lott MD - Date: 10/05/2024 - Maternal medicine ultrasound: Transabdominal cervical length 5 cm, patient declined transvaginal exam, estimated due date revised to 03/06/2025 based on 15 weeks 1 day gestational age, remainder of exam within normal limits - Date: 10/27/2024 - Detailed anatomy survey ultrasound: Anatomy survey within normal limits, transvaginal cervical length 4.69 cm, estimated due date 03/06/2025, suspicion for VSD noted Problem List - at 20 weeks 5 days gestation - Back pain - Advanced maternal age - Previous - Intrauterine demise - Suspected ventricular septal defect Visit Date: 09/28/24 Last Updated by: Jonathon Lott MD Laboratory, Imaging, and Diagnostic Test Results - Date: 09/09/2024 - Hepatitis B: Negative - Hepatitis C: Negative - RPR: Non-reactive - Rubella: Non-immune - Blood group: A positive - Antibody screen: Negative - HIV: Negative - Gonorrhea: Negative - Chlamydia: Negative - Maternity 21: Negative for trisomy - Cystic fibrosis screening: Negative - Fragile X-gene: Negative - gender (blood test): Female - Ultrasound: - heartbeat: 149 bpm (normal) Visit Date: 08/03/24 Last Updated by: Jonathon Lott MD Corrected Estimated Due Date Summary LMP05/25/2024EDD by LMP03/01/2025 Ultrasound #[id number] at us [id number] by US #1: 03/19/2025 Final EDD6Basis for Final [id number] Sono (redated from LMP) Previous Section?No Office Procedures OBC Clinic LOC & Office Proc's Nursing/Assessment Patient Status: Established Patient OB Clinic Nursing Assessment: Medication Reconciliation, Update PMH in EMR and Vital Signs OB Clinic Coordination of Care: Consent,records obtained, informed consent, Education Simp Pt/Fam, Lab and Imaging orders, Results/Orders obtained and Staff clarify orders Special Needs: Heart tones Established Patient Charge Established Patient Point Assignment: 110 Established Patient Point Charge: EP Level 3 (80-115) Assessment & Plan Diagnosis / Problem List (1) Personal history of (corrected) congenital malformations of heart and circulatory system: Status: Acute (2) Supervision of with other poor reproductive or obstetric history, third trimester: Status: Acute (3) Supervision of high risk , unspecified, third trimester: Status: Acute Plan Problem List - at 32 weeks and 3 days - Personal history of congenital malformations of heart and circulatory system - Uterine size-date discrepancy - Personal history of delivery - Advanced maternal age Assessment 32-week 3-day gestation in a 40-year-old multigravida with history of congenital heart malformations in previous children (tetralogy of Fallot and ASD), currently with suspected VSD that was ruled out on [facility] ultrasound. Patient has significant obstetric history including two prior births at 24 weeks ( demise with Down syndrome) and 32 weeks. Current complicated by uterine size-date discrepancy with uncertain last menstrual period. One-hour glucose tolerance test result of 119 mg/dL is normal. Recent MFM ultrasound at 28 weeks showed estimated weight of 1210 grams (33rd percentile) with slightly elevated but normal amniotic fluid levels and normal anatomy. Cervical length surveillance has been normal throughout current . Patient is receiving routine antepartum surveillance appropriate for advanced maternal age. Plan - CBC and RPR labs to be drawn - Tdap vaccination to be administered today - Follow-up appointment in 2 weeks - growth ultrasound scheduled at 34-36 weeks - Continue routine antepartum surveillance - Continue labor precautions 1. Progress Reviewed gestational age (32 weeks 3 days), growth (estimated weight 1210 grams at 28 weeks, 33rd percentile), and heart rate (138 bpm, normal). Planned frequent visits (every 2 weeks until 36 weeks, then weekly). 2. Instructed patient to monitor movements and report decreases immediately. 3. Testing Counseled on routine third-trimester labs per guidelines (CBC for anemia screening, RPR for syphilis screening ordered). Discussed potential need for ultrasound or monitoring based on risk factors ( growth ultrasound scheduled at 34-36 weeks). 4. Preeclampsia Precaution Educated on preeclampsia signs: severe headache, vision changes, right upper quadrant pain, sudden swelling. Advised urgent reporting of symptoms and discussed blood pressure monitoring if high risk. 5. Labor Precautions Reviewed labor signs: regular contractions, pelvic pressure, back pain, bleeding, or fluid leakage. Instructed to seek immediate care for these symptoms. 6. Lifestyle and Delivery Preparation Reinforced vitamins, nutrition, and safe activity. Discussed plan, pain management, and . Advised on labor preparation (e.g., hospital bag) and expectations. 7. Psychosocial Support Assessed emotional well-being and offered resources for mental health or parenting support.
== END 2025-01-12 10:40 | disposition home or self-care (01) ==
LOC: HODSOBC 10:26
PROVIDERS: Supervising Provider Obstetrics & Gynecology; Visit Provider Obstetrics & Gynecology
DX: O09.293 Supervision of pregnancy with other poor reproductive or obstetric history, third trimester (principal); O09.893 Supervision of other high risk pregnancies, third trimester; O26.843 Uterine size-date discrepancy, third trimester; O09.523 Supervision of elderly multigravida, third trimester; Z3A.32 32 weeks gestation of pregnancy; O09.213 Supervision of pregnancy with history of pre-term labor, third trimester; Z82.79 Family history of other congenital malformations, deformations and chromosomal abnormalities
CPT/HCPCS: 99213; G0463

== ENCOUNTER 2025-01-28 10:05 | Outpatient (AMB) | payer MEDICAID, SELFPAY ==
[2025-01-28 10:16] VITALS: BP 97/64; PULSE 80; RESP 18; TEMP 36.1; O2SAT 98; BMI 31.6
--- NOTE | 2025-01-28 10:16 | AMB.OBPNC ---
Vital Signs 01/28/25 10:16 Height 1.51 m Height Method Stated Weight 72.291 kg Weight Measurement Method Standing Scale BMI 31.6 BP 97/64 Blood Pressure Source Automatic Cuff Blood Pressure Location Right Upper Arm Position Sitting Respiration 18 Pulse 80 Pulse Source Monitor Temp 97.0 F Temp Source Temporal Artery Scan Pulse Oximetry (%) 98 Oxygen Delivery Method Room Air Allergies/Home Meds Allergies & Medications Allergies No Known Allergies Allergy (Verified 01/28/25 10:16) Medication Reconciliation vitamins with calcium no.72-iron 27 mg-folic acid 1 mg tablet ( Vitamins Plus Low Iron) 1 tab PO QDAY 90 days #90 tabs 08/19/24 [Rx Confirmed 01/28/25] Immunizations Immunizations Flu Vaccine in the Last 12 Months: Yes Date of most recent flu vaccination: 01/28/25 Flu Vaccine Exclusion Criteria: Already Received Care OB Visit Log OB Flowsheet Initial Weight: Not Recorded Date <del>?</del> EGA Weight BP Alb Glu CTX Pres Fundal ht FHR Mov Dilation Station Effacement Hx Notes Visit Note 08/03/24 <del>?</del> 9w 2d 64.92 kg 115/76 @7w3d by U/S, LMP 05/25/24, SEVEN mid-Feb 2025. Reports mild nausea, no vomiting or bleeding. FHx of congenital heart defects (ToF, murmur in daughters). Anemia noted; stopped iron per previous instructions. FHR 162 bpm. Plan: Labs and genetic testing ordered?draw after 9w GA. F/u in 4 weeks with ultrasound. Prescribed vitamins; iron to be reassessed after labs. Referred to [facility] for detailed anatomy scan and echocardiogram due to FHx of CHD. [facility] Dates for labs and SEVEN written for patient. Corrected Estimated Due Date Summary LMPUnknownEDD by LMP? Ultrasound #[id number] at us [id number] by US #1: 08/22/2024 Ultrasound #[id number] at us [id number] by US #2: 08/22/2024 Final EDD08/22/2024asis for Final EDD12w Sono (confirmed by 15w) 08/05/25 <del>?</del> 17w 2d 67.699 kg 107/71 149 - Patient reports overall feeling well with her . - She experiences occasional cramping. - Denies nausea, bleeding, or spotting. - No other -related symptoms or concerns reported. - Follow-up appointment scheduled in one month - Ultrasound scheduled for November 23 at [facility] - Await results of 20-week or later ultrasound to confirm cardiac findings 11/04/24 <del>?</del> 22w 4d 70.08 kg 112/74 occasional cephalic 22 145 active - She reports improvement in nausea since her last visit. - She experiences back pain that occurs sometimes, not constantly. - The patient has started feeling movements. 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 - Obtain disability forms from [employer] office, complete patient portion, and return for physician completion with start date from tomorrow - Glucose tolerance test ordered for diabetes screening - Maternity support belt recommended, available at [facility] - echocardiogram scheduled for 11/23/2024 due to suspicion for VSD - Continue cervical length surveillance given history of births 12/07/24 <del>?</del> 27w 2d 70.987 kg 99/62 occasional cephalic 27 160 - She reports no contractions, cramping, or pressure other than what is expected for her gestational age. - Patient has been undergoing cervical length monitoring, with last measurement being 4.7 centimeters. - Baby had suspected ventricular septal defect (VSD) requiring echocardiogram evaluation. - Patient reports that internal ultrasounds to check cervix have been discontinued. - She has an upcoming regular ultrasound scheduled at [facility] in approximately 10 days. - Schedule her next appointment in 4 weeks - After the 4-week appointment, transition to every 2 weeks visits - Continue regular ultrasounds at [facility] (next appointment in approximately 10 days) - Order antepartum testing referral - Glucose diabetes test results to be reviewed and reported to patient 01/12/25 <del>?</del> 32w 3d 72.235 kg 101/67 occasional cephalic 32 143 active - Patient reports no signs of labor at this visit. - She has been having normal transvaginal cervical length measurements during current . - Patient has a personal history of births at 24 weeks ( demise due to Down syndrome) and 32 weeks. - Current course has been significant for uterine size-date discrepancy with unsure last menstrual period. - Patient has personal history of congenital heart malformations and has had children with tetralogy of Fallot and atrial septal defect. - Current baby had suspected ventricular septal defect that was ruled out on maternal- medicine ultrasound. - CBC and RPR labs to be drawn - Tdap vaccination to be administered today - Follow-up appointment in 2 weeks - growth ultrasound scheduled at 34-36 weeks - Continue routine antepartum surveillance - Continue labor precautions 01/28/25 <del>?</del> 34w 5d 72.291 kg 97/64 absent cephalic 35 132 active - She is being co-managed with Maternal Medicine. - Patient reports baby is active. - She denies contractions or signs of labor. - Patient inquires about tubal ligation procedure after delivery. - Tubal ligation procedure to be scheduled at 6-week visit via laparoscopic approach as separate procedure (not performed during delivery at this hospital) - Group B Strep culture to be obtained at next appointment around 36 weeks - Follow-up in 2 weeks, then weekly appointments thereafter - Final ultrasound scheduled for next Friday with Maternal Medicine - Tubal ligation consent form to be provided SEVEN Calculator Estimated Delivery Date Method Current Current Estimate 03/06/25 Ultrasound #1 35w 0d Other Estimates 03/01/25 LMP (Uncertain) 35w 5d Notes Visit Date: 01/12/25 Last Updated by: Jonathon Lott MD Laboratory, Imaging, and Diagnostic Test Results - One-hour glucose tolerance test: 119 mg/dL - [facility] ultrasound (12/15/2024) at 28 weeks gestation: - Estimated weight: 1210 grams (33rd percentile) - Suspected VSD ruled out - Normal transvaginal cervical length measurements - Amniotic fluid slightly elevated but within normal range - Normal anatomy - Normal growth Visit Date: 12/07/24 Last Updated by: Jonathon Lott MD - echocardiogram (November 23): Normal echocardiogram, normal segmental intracardiac anatomy, patent foramen ovale with physiologic shunt, large PDA with physiologic shunt, normal chamber dimensions, good ventricular function, no evidence of arrhythmia Visit Date: 11/04/24 Last Updated by: Jonathon Lott MD - Date: 10/05/2024 - Maternal medicine ultrasound: Transabdominal cervical length 5 cm, patient declined transvaginal exam, estimated due date revised to 03/06/2025 based on 15 weeks 1 day gestational age, remainder of exam within normal limits - Date: 10/27/2024 - Detailed anatomy survey ultrasound: Anatomy survey within normal limits, transvaginal cervical length 4.69 cm, estimated due date 03/06/2025, suspicion for VSD noted Problem List - at 20 weeks 5 days gestation - Back pain - Advanced maternal age - Previous - Intrauterine demise - Suspected ventricular septal defect Visit Date: 09/28/24 Last Updated by: Jonathon Lott MD Laboratory, Imaging, and Diagnostic Test Results - Date: 09/09/2024 - Hepatitis B: Negative - Hepatitis C: Negative - RPR: Non-reactive - Rubella: Non-immune - Blood group: A positive - Antibody screen: Negative - HIV: Negative - Gonorrhea: Negative - Chlamydia: Negative - Maternity 21: Negative for trisomy - Cystic fibrosis screening: Negative - Fragile X-gene: Negative - gender (blood test): Female - Ultrasound: - heartbeat: 149 bpm (normal) Visit Date: 08/03/24 Last Updated by: Jonathon Lott MD Corrected Estimated Due Date Summary [id number] by LMP03/01/2025 Ultrasound #[id number] at us [id number] by US #1: 03/19/2025 Final EDD6Basis for Final [id number] Sono (redated from LMP) Previous Section?No Office Procedures OBC Clinic LOC & Office Proc's Nursing/Assessment Patient Status: Established Patient OB Clinic Nursing Assessment: Medication Reconciliation, Update PMH in EMR and Vital Signs OB Clinic Coordination of Care: Complex Care and Chronic Disease 1-5, Education Complex Pt/Fam, Consent,records obtained, informed consent, Lab and Imaging orders, Results/Orders obtained and Staff clarify orders Special Needs: Heart tones Established Patient Charge Established Patient Point Assignment: 140 Established Patient Point Charge: EP Level 4 (120155) Injection/Vaccine Admin SQ Im Injection: Yes Immunizations flu vac ts (6mos up)-PF 45 mcg(15mcg x3)/0.5 mL IM syringe Performing Provider: Jonathon Lott MD Performing Location: [facility] Administered by: Sailaja Kumar MA on 01/28/25 11:46 Dose Route Admin Location Dispensed Lot Number Expiration Date Package [facility] [place] Taste Tester 0.5 mL IM Left Deltoid 0.5 mL [id number] 08/23/25 90260-578-27 [id number] [employer] VIS Given Date VIS Provided VIS Publication Date 01/28/25 Single Vaccine 24 Eligibility Eligibility Date Funding Source Public [facility] diphth,pertus(acell),tetanus 2.5 Lf unit-8 mcg-5 Lf/0.5mL IM syringe Performing Provider: Jonathon Lott MD Performing Location: [facility] Administered by: Sailaja Kumar MA on 01/28/25 11:46 Dose Route Admin Location Dispensed Lot Number Expiration Date Package [place] NDC Taste Tester 0.5 mL IM Left Deltoid 0.5 mL [id number] 05/21/27 [id number] [employer] VIS Given Date VIS Provided VIS Publication Date 01/28/25 Single Vaccine 24 Eligibility Eligibility Date Funding Source Public [facility] Assessment & Plan Diagnosis / Problem List (1) Personal history of (corrected) congenital malformations of heart and circulatory system: Status: Acute (2) Supervision of with other poor reproductive or obstetric history, third trimester: Status: Acute Plan Problem List - at 34 weeks 5 days gestation - History of delivery Assessment 34 weeks and 5 days gestation in a patient with history of delivery, currently co-managed with Maternal Medicine. Laboratory results show hemoglobin of 13.0 g/dL indicating no anemia and negative RPR test. heart rate is 132 bpm which is normal. Patient reports activity with no contractions or signs of labor. Plan - Tubal ligation procedure to be scheduled at 6-week visit via laparoscopic approach as separate procedure (not performed during delivery at this hospital) - Group B Strep culture to be obtained at next appointment around 36 weeks - Follow-up in 2 weeks, then weekly appointments thereafter - Final ultrasound scheduled for next Friday with Maternal Medicine - Tubal ligation consent form to be provided 1. Progress Reviewed gestational age (34 weeks 5 days), growth, and heart rate (132 bpm, normal). Planned frequent visits (every 2 weeks until 36 weeks, then weekly). 2. Instructed patient to monitor movements and report decreases immediately. 3. Testing Counseled on routine third-trimester labs per guidelines. Labs completed with hemoglobin 13.0 (no anemia) and negative RPR. Group B Strep culture scheduled for next visit around 36 weeks. Discussed potential need for ultrasound or monitoring based on risk factors. Patient has upcoming ultrasound scheduled for next Friday. 4. Preeclampsia Precaution Educated on preeclampsia signs: severe headache, vision changes, right upper quadrant pain, sudden swelling. Advised urgent reporting of symptoms and discussed blood pressure monitoring if high risk. 5. Labor Precautions Reviewed labor signs: regular contractions, pelvic pressure, back pain, bleeding, or fluid leakage. Patient denied contractions or signs of labor. Instructed to seek immediate care for these symptoms. 6. Lifestyle and Delivery Preparation Reinforced vitamins, nutrition, and safe activity. Discussed plan, pain management, and . Patient received 2 vaccines as recommended. Advised on labor preparation (e.g., hospital bag) and expectations. Discussed tubal ligation procedure to be scheduled at 6-week visit. 7. Psychosocial Support Assessed emotional well-being and offered resources for mental health or parenting support.
== END 2025-01-28 10:36 | disposition home or self-care (01) ==
LOC: HODSOBC 10:05
PROVIDERS: Supervising Provider Obstetrics & Gynecology; Visit Provider Obstetrics & Gynecology
DX: O09.293 Supervision of pregnancy with other poor reproductive or obstetric history, third trimester (principal); O09.213 Supervision of pregnancy with history of pre-term labor, third trimester; O09.523 Supervision of elderly multigravida, third trimester; O09.893 Supervision of other high risk pregnancies, third trimester; Z87.74 Personal history of (corrected) congenital malformations of heart and circulatory system; Z3A.34 34 weeks gestation of pregnancy; Z23 Encounter for immunization; Z82.49 Family history of ischemic heart disease and other diseases of the circulatory system
CPT/HCPCS: 90471; 90472; 90686; 90715; 96372; 99214; G0463; J9060

== ENCOUNTER 2025-02-14 10:31 | Outpatient (AMB) | payer MEDICAID, SELFPAY ==
[2025-02-14 10:41] VITALS: BP 114/73; PULSE 83; RESP 16; TEMP 36.1; O2SAT 98; BMI 32.0
--- NOTE | 2025-02-14 10:41 | OBCLNT_ITS ---
Vital Signs 02/14/25 10:41 Height 1.51 m Height Method Stated Weight 73.028 kg Weight Measurement Method Standing Scale BMI 32.0 BP 114/73 Blood Pressure Source Automatic Cuff Blood Pressure Location Left Upper Arm Position Sitting Respiration 16 Pulse 83 Pulse Source Monitor Temp 97 F Temp Source Oral Pulse Oximetry (%) 98 Oxygen Delivery Method Room Air Allergies/Home Meds Allergies & Medications Allergies No Known Allergies Allergy (Verified 02/14/25 10:42) Medication Reconciliation vitamins with calcium no.72-iron 27 mg-folic acid 1 mg tablet ( Vitamins Plus Low Iron) 1 tab PO QDAY 90 days #90 tabs 08/19/24 [Rx Confirmed 02/14/25] Immunizations Immunizations Flu Vaccine in the Last 12 Months: Yes Flu Vaccine Exclusion Criteria: Already Received Care OB Visit Log OB Flowsheet Initial Weight: Not Recorded Date -?-?-?-?-?-?-?-?-?-?-?-?- EGA Weight BP Alb Glu CTX Pres Fundal ht FHR Mov Dilation Station Effacement Hx Notes Visit Note 08/03/24 -?-?-?-?-?-?-?-?-?-?-?-?- 9w 2d 64.92 kg 115/76 @7w3d by U/S, LMP 05/25/24, SEVEN mid-Feb 2025. Reports mild nausea, no vomiting or bleeding. FHx of congenital heart defects (ToF, murmur in daughters). Anemia noted; stopped iron per previous instructions. FHR 162 bpm. Plan: Labs and genetic testing ordered?draw af ter 9w GA. F/u in 4 weeks with ultrasound. Prescribed vitamins; iron to be reassessed after labs. Referred to [facility] for detailed anatomy scan and echocardiogram due to FHx of CHD. Prescriptions sent to [facility]. Dates for labs and SEVEN written for patient. Corrected Estimated Due Date Summary [id number] by LMP? Ultrasound #[id number] at us [id number] by US #1: 08/22/2024 Ultrasound #[id number] at us [id number] by US #2: 08/22/2024 Final EDD08/22/2024asis for Final EDD12 w Sono (confirmed by 15w) 09/28/24 -?-?-?-?-?-?-?-?-?-?-?-?- 17w 2d 67.699 kg 107/71 149 - Patient reports overall feeling well with her . - She experiences occasional cramping. - Denies nausea, bleeding, or spotting. - No other -related symptoms or concerns reported. - Follow-up appointment scheduled in one month - Ultrasound scheduled for October h at [facility] - Await results of 20-week or later ultr asound to confirm cardiac findings 11/04/24 -?-?-?-?-?-?-?-?-?-?-?-?- 22w 4d 70.08 kg 112/74 occasional cephalic 22 145 active - She reports improvement in nausea since her last visit. - She experiences back pain that occurs sometimes, not constantly. - The patient has started feeling movements. 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 - Obtain disability forms from Social Security office, complete patient portion, and return for physician completion with start date from tomorrow - Glucose tolerance test ordered for criselda goldman screening - Maternity support belt recommended, av ailable at [facility] - echocardiogram scheduled for 10/27 due to suspicion for VSD - Continue cervical length surveillance given history of births 12/07/24 -?-?-?-?-?-?-?-?-?-?-?-?- 27w 2d 70.987 kg 99/62 occasional cephalic 27 160 - She reports no contractions, cramping, or pressure other than what is expected for her gestational age. - Patient has been undergoing cervical l ength monitoring, with last measurement being 4.7 centimeters. - Baby had suspected ventricular septal defect (VSD) requiring echocardiogram evaluation. - Patient reports that internal ultrasou nds to check cervix have been discontinued. - She has an upcoming regular ultrasound scheduled at [facility] in approximately 10 days. - Schedul e her next appointment in 4 weeks - After the 4-week appointment, transiti on to every 2 weeks visits - Continue regular ultrasounds at [facility] (next appointment in approximately 10 days) - Order antepartum testing referral - Glucose diabetes test results to be re viewed and reported to patient 01/12/25 -?-?-?-?-?-?-?-?-?-?-?-?- 32w 3d 72.235 kg 101/67 occasional cephalic 32 143 active - Patient reports no signs of labor at this visit. - She has been having normal transvagina l cervical length measurements during current . - Patient has a personal history of pret erm births at 24 weeks ( demise due to Down syndrome) and 32 weeks. - Current course has been sign ificant for uterine size-date discrepancy with unsure last menstrual period. - Patient has personal history of congen ital heart malformations and has had children with tetralogy of Fallot and atrial septal defect. - Current [facility] had [facility] - CBC and RPR labs to be drawn - Tdap vaccination to be administered to day - Follow-up appointment in 2 weeks - growth ultrasound scheduled at 3 4-36 weeks - Continue routine antepartum surveillan ce - Continue labor precautions 01/28/25 -?-?-?-?-?-?-?-?-?-?-?-?- 34w 5d 72.291 kg 97/64 absent cephalic 35 132 active - She is being co- managed with [facility]. - Patient reports baby is active. - She denies contractions or signs of pr eterm labor. - Patient inquires about tubal ligation procedure after delivery. - Tubal ligation procedure to be scheduled at 6-week visit via laparoscopic approach as separate procedure (not performed during delivery at this hospital) - Group B Strep culture to be obtained a t next appointment around 36 weeks - Follow-up in 2 weeks, then weekly appo intments thereafter - Final ultrasound scheduled for next We dnesday with [facility] - Tubal ligation consent form to be prov ided 02/14/25 -?-?-?-?-?-?-?-?-?-?-?-?- 37w 1d 73.028 kg 114/73 absent cephalic 37 145 active - She reports the baby is active. - She denies leaking fluid or contractio ns. - She reports white-geovanna vaginal discharg e that occurred this morning, described as white-geovanna in color. - She confirms readiness for baby's arri pedro with car seat and other preparations in place. - Schedule induc tion of labor at 39 weeks to 39 weeks 6 days per [facility] recommendation - Arrange for oil developer to be present at delivery for cardiac evaluation of - Perform GBS culture - Plan for vaginal delivery (patient cou nseled that section not indicated as fetus is vertex presentation) SEVEN Calculator Estimated Delivery Date Method Current WG Current Estimate 03/06/25 Ultrasound #1 37w 2d Other Estimates 03/01/25 LMP (Uncertain) 38w 0d Notes Visit Date: 01/12/25 Last Updated by: Jonathon Lott MD Laboratory, Imaging, and Diagnostic Test Results - One-hour glucose tolerance test: 119 mg/dL - [facility] ultrasound (12/15/2024) at 28 weeks gestation: - Estimated weight: 1210 grams (33rd percentile) - Suspected VSD ruled out - Normal transvaginal cervical length measurements - Amniotic fluid slightly elevated but within normal range - Normal anatomy - Normal growth Visit Date: 12/07/24 Last Updated by: Jonathon Lott MD - echocardiogram (November 23): Normal echocardiogram, normal segmental intracardiac anatomy, patent foramen ovale with physiologic shunt, large PDA with physiologic shunt, normal chamber dimensions, good ventricular function, no evidence of arrhythmia Visit Date: 11/04/24 Last Updated by: Jonathon Lott MD - Date: 10/05/2024 - Maternal medicine ultrasound: Transabdominal cervical length 5 cm, patient declined transvaginal exam, estimated due date revised to 03/06/2025 based on 15 weeks 1 day gestational age, remainder of exam within normal limits - Date: 10/27/2024 - Detailed anatomy survey ultrasound: Anatomy survey within normal limits, transvaginal cervical length 4.69 cm, estimated due date 03/06/2025, suspicion for VSD noted Problem List - at 20 weeks 5 days gestation - Back pain - Advanced maternal age - Previous - Intrauterine demise - Suspected ventricular septal defect Visit Date: 09/28/24 Last Updated by: Jonathon Lott MD Laboratory, Imaging, and Diagnostic Test Results - Date: 09/09/2024 - Hepatitis B: Negative - Hepatitis C: Negative - RPR: Non-reactive - Rubella: Non-immune - Blood group: A positive - Antibody screen: Negative - HIV: Negative - Gonorrhea: Negative - Chlamydia: Negative - Maternity 21: Negative for trisomy - Cystic fibrosis screening: Negative - Fragile X-gene: Negative - gender (blood test): Female - Ultrasound: - heartbeat: 149 bpm (normal) Visit Date: 08/03/24 Last Updated by: Jonathon Lott MD Corrected Estimated Due Date Summary [id number] by LMP01 Ultrasound #[id number] at us [id number] by US #1: 03/19/2025 Final EDD6Basis for Final [id number] Sono (redated from LMP) Previous Section?No Office Procedures [facility] LOC & Office Proc's Nursing/Assessment Patient Status: Established Patient OB Clinic Nursing Assessment: Medication Reconciliation, Update PMH in EMR and Vital Signs OB Clinic Coordination of Care: AMA, Complex Care and Chronic Disease 1-5, Consent,records obtained, informed consent, Education Simp Pt/Fam, 1 Ins Authorization, Lab and Imaging orders, Results/Orders obtained and Staff clarify orders Special Needs: Heart tones Miscellaneous Interventions: Culture Specimen Collection and Pelvic Comp w/OB cult Established Patient Charge Established Patient Point Assignment: 200 Established Patient Point Charge: EP Level 5 (160-above) Assessment & Plan Diagnosis / Problem List (1) Personal history of (corrected) congenital malformations of heart and circulatory system: Status: Acute (2) Supervision of with other poor reproductive or obstetric history, third trimester: Status: Acute (3) Supervision of high risk , unspecified, third trimester: Status: Acute (4) AMA (advanced maternal age) multigravida 35+: Status: Acute Plan Problem List - Advanced maternal age - History of children with congenital heart disease Assessment 39-year-old patient at 37 weeks and 1 day gestation with advanced maternal age and history of 2 prior children with congenital heart disease. Recent [facility] ultrasound on February 02 showed single living fetus in cephalic presentation at 38th percentile (2586 grams at 35 weeks 3 days), normal anatomy, and posterior placenta without previa. Patient reports normal movement, white vaginal discharge which appears physiologic, and denies leaking or contractions. heart rate is 143 bpm which is normal. Plan - Schedule induction of labor at 39 weeks to 39 weeks 6 days per [facility] recommendation - Arrange for oil developer to be present at delivery for cardiac evaluation of - Perform GBS culture - Plan for vaginal delivery (patient counseled that section not indicated as fetus is vertex presentation) 1. Progress Reviewed gestational age at 37 weeks 1 day, growth showing cephalic presentation at 38th percentile weighing 2586 grams, and heart rate of 143 bpm which is normal. Patient reports active movement. Planned induction at 39-39+6 weeks due to advanced maternal age and history of prior children with congenital heart disease. 2. Instructed patient to monitor movements and report decreases immediately. 3. Testing GBS culture obtained during visit. Recent [facility] ultrasound on February 02 showed normal anatomy with no concerning findings. 4. Preeclampsia Precaution Educated on preeclampsia signs: severe headache, vision changes, right upper quadrant pain, sudden swelling. Advised urgent reporting of symptoms and discussed blood pressure monitoring if she is high risk. 5. Labor Precautions Reviewed labor signs including fluid leakage. Patient reported whitish discharge which was assessed as normal. Instructed her to seek immediate care for concerning symptoms. 6. Lifestyle and Delivery Preparation Discussed planned induction for vaginal delivery with oil developer present due to family history of congenital heart disease. Confirmed patient has car seat and is prepared for her baby's arrival. 7. Psychosocial Support Assessed her emotional well-being and offered resources for mental health or parenting support.
== END 2025-02-14 10:54 | disposition home or self-care (01) ==
LOC: HODSOBC 10:31
PROVIDERS: PCP Obstetrics & Gynecology; Referring Provider Obstetrics & Gynecology; Supervising Provider Obstetrics & Gynecology; Visit Provider Obstetrics & Gynecology
DX: O09.293 Supervision of pregnancy with other poor reproductive or obstetric history, third trimester (principal); O09.523 Supervision of elderly multigravida, third trimester; O09.893 Supervision of other high risk pregnancies, third trimester; O09.213 Supervision of pregnancy with history of pre-term labor, third trimester; Z3A.37 37 weeks gestation of pregnancy; Z82.79 Family history of other congenital malformations, deformations and chromosomal abnormalities; Z36.85 Encounter for antenatal screening for Streptococcus B
CPT/HCPCS: 99215; G0463

== ENCOUNTER 2025-02-22 14:18 | Outpatient (AMB) | payer MEDICAID, SELFPAY ==
[2025-02-22 14:28] VITALS: BP 103/68; PULSE 89; RESP 16; TEMP 36.1; O2SAT 98; BMI 32.4
--- NOTE | 2025-02-22 14:28 | OBCLNT_ITS ---
Vital Signs 02/22/25 14:28 Height 1.51 m Height Method Stated Weight 74.049 kg Weight Measurement Method Standing Scale BMI 32.4 BP 103/68 Blood Pressure Source Automatic Cuff Blood Pressure Location Left Upper Arm Position Sitting Respiration 16 Pulse 89 Pulse Source Monitor Temp 97 F Temp Source Oral Pulse Oximetry (%) 98 Oxygen Delivery Method Room Air Allergies/Home Meds Allergies & Medications Allergies No Known Allergies Allergy (Verified 02/22/25 14:29) Medication Reconciliation vitamins with calcium no.72-iron 27 mg-folic acid 1 mg tablet ( Vitamins Plus Low Iron) 1 tab PO QDAY 90 days #90 tabs 08/19/24 [Rx Confirmed 02/22/25] Immunizations Immunizations Flu Vaccine in the Last 12 Months: Yes Date of most recent flu vaccination: 01/28/25 Flu Vaccine Exclusion Criteria: Already Received Care OB Visit Log OB Flowsheet Initial Weight: Not Recorded Date -?-?-?-?-?-?-?-?-?-?-?-?- EGA Weight BP Alb Glu CTX Pres Fundal ht FHR Mov Dilation Station Effacement Hx Notes Visit Note 08/03/24 -?-?-?-?-?-?-?-?-?-?-?-?- 9w 2d 64.92 kg 115/76 @7w3d by U/S, LMP 05/25/24, SEVEN mid-Feb 2025. Reports mild nausea, no vomiting or bleeding. FHx of congenital heart defects (ToF, murmur in daughters). Anemia noted; stopped iron per previous instructions. FHR 162 bpm. Plan: Labs and genetic testing ordered?draw af ter 9w GA. F/u in 4 weeks with ultrasound. Prescribed vitamins; iron to be reassessed after labs. Referred to [facility] for detailed anatomy scan and echocardiogram due to FHx of CHD. Prescriptions sent to [facility]. Dates for labs and SEVEN written for patient. Corrected Estimated Due Date Summary [id number] by LMP? Ultrasound #112/GA at us [id number] by US #1: 08/22/2024 Ultrasound #[id number] at us [id number] by US #2: 08/22/2024 Final EDD08/22/2024asis for Final EDD12 w Sono (confirmed by 15w) 09/28/24 -?-?-?-?-?-?-?-?-?-?-?-?- 17w 2d 67.699 kg 107/71 149 - Patient reports overall feeling well with her . - She experiences occasional cramping. - Denies nausea, bleeding, or spotting. - No other -related symptoms or concerns reported. - Follow-up appointment scheduled in one month - Ultrasound scheduled for October h at [facility] - Await results of 20-week or later ultr asound to confirm cardiac findings 11/04/24 -?-?-?-?-?-?-?-?-?-?-?-?- 22w 4d 70.08 kg 112/74 occasional cephalic 22 145 active - She reports improvement in nausea since her last visit. - She experiences back pain that occurs sometimes, not constantly. - The patient has started feeling movements. 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 - Obtain disability forms from Social Security office, complete patient portion, and return for physician completion with start date from tomorrow - Glucose tolerance test ordered for criselda goldman screening - Maternity support belt recommended, av ailable at [facility] - echocardiogram scheduled for 10/27 due to suspicion for VSD - Continue cervical length surveillance given history of births 12/07/24 -?-?-?-?-?-?-?-?-?-?-?-?- 27w 2d 70.987 kg 99/62 occasional cephalic 27 160 - She reports no contractions, cramping, or pressure other than what is expected for her gestational age. - Patient has been undergoing cervical l ength monitoring, with last measurement being 4.7 centimeters. - Baby had suspected ventricular septal defect (VSD) requiring echocardiogram evaluation. - Patient reports that internal ultrasou nds to check cervix have been discontinued. - She has an upcoming regular ultrasound scheduled at [facility] in approximately 10 days. - Schedul e her next appointment in 4 weeks - After the 4-week appointment, transiti on to every 2 weeks visits - Continue regular ultrasounds at [facility] (next appointment in approximately 10 days) - Order antepartum testing referral - Glucose diabetes test results to be re viewed and reported to patient 01/12/25 -?-?-?-?-?-?-?-?-?-?-?-?- 32w 3d 72.235 kg 101/67 occasional cephalic 32 143 active - Patient reports no signs of labor at this visit. - She has been having normal transvagina l cervical length measurements during current . - Patient has a personal history of pret erm births at 24 weeks ( demise due to Down syndrome) and 32 weeks. - Current course has been sign ificant for uterine size-date discrepancy with unsure last menstrual period. - Patient has personal history of congen ital heart malformations and has had children with tetralogy of Fallot and atrial septal defect. - Current baby had suspected ventricular septal defect that was ruled out on maternal- medicine ultrasound. - CBC and RPR labs to be drawn - Tdap vaccination to be administered to day - Follow-up appointment in 2 weeks - growth ultrasound scheduled at 3 4-36 weeks - Continue routine antepartum surveillan ce - Continue labor precautions 01/28/25 -?-?-?-?-?-?-?-?-?-?-?-?- 34w 5d 72.291 kg 97/64 absent cephalic 35 132 active - She is being co- managed with Maternal Medicine. - Patient reports baby is active. - She denies contractions or signs of pr eterm labor. - Patient inquires about tubal ligation procedure after delivery. - Tubal ligation procedure to be scheduled at 6-week visit via laparoscopic approach as separate procedure (not performed during delivery at this hospital) - Group B Strep culture to be obtained a t next appointment around 36 weeks - Follow-up in 2 weeks, then weekly appo intments thereafter - Final ultrasound scheduled for next We dnesday with Maternal Medicine - Tubal ligation consent form to be prov ided 02/14/25 -?-?-?-?-?-?-?-?-?-?-?-?- 37w 1d 73.028 kg 114/73 absent cephalic 37 145 active - She reports the baby is active. - She denies leaking fluid or contractio ns. - She reports white-geovanna vaginal discharg e that occurred this morning, described as white-geovanna in color. - She confirms readiness for baby's arri pedro with car seat and other preparations in place. - Schedule induc tion of labor at 39 weeks to 39 weeks 6 days per [facility] recommendation - Arrange for electronics specialist to be present at delivery for cardiac evaluation of - Perform GBS culture - Plan for vaginal delivery (patient cou nseled that section not indicated as fetus is vertex presentation) 02/22/25 -?-?-?-?-?-?-?-?-?-?-?-?- 38w 2d 74.049 kg 103/68 absent cephalic 38 145 active - Pita Jo is a 6 para 4 female at 38 weeks and 2 days gestation with advanced maternal age and history of prior children with congenital heart disease, here for routine visit prior to scheduled induction. - Patient reports baby is active. - She denies contractions, leaking, or o ther problems since last visit. - Scheduled for induction on March 02 with instructions provided for calling labor and delivery. - Induction of labor scheduled for March 02 - Patient to call provided number on ind uction date - Charge nurse will assign room and prov ashley arrival time instructions - Patient given induction process instru ctions and contact information SEVEN Calculator Estimated Delivery Date Method Current WG Current Estimate 03/06/25 Ultrasound #1 38w 2d Other Estimates 03/01/25 LMP (Uncertain) 39w 0d Notes Visit Date: 01/12/25 Last Updated by: Jonathon Lott MD Laboratory, Imaging, and Diagnostic Test Results - One-hour glucose tolerance test: 119 mg/dL - [facility] ultrasound (12/15/2024) at 28 weeks gestation: - Estimated weight: 1210 grams (33rd percentile) - Suspected VSD ruled out - Normal transvaginal cervical length measurements - Amniotic fluid slightly elevated but within normal range - Normal anatomy - Normal growth Visit Date: 12/07/24 Last Updated by: Jonathon Lott MD - echocardiogram (November 23): Normal echocardiogram, normal segmental intracardiac anatomy, patent foramen ovale with physiologic shunt, large PDA with physiologic shunt, normal chamber dimensions, good ventric ular function, no evidence of arrhythmia Visit Date: 11/04/24 Last Updated by: Jonathon Lott MD - Date: 10/05/2024 - Maternal medicine ultrasound: Transabdominal cervical length 5 cm, patient declined transvaginal exam, estimated due date revised to 03/06/2025 based on 15 weeks 1 day gestational age, remainder of exam within normal limits - Date: 10/27/2024 - Detailed anatomy survey ultrasound: Anatomy survey within normal limits, transvaginal cervical length 4.69 cm, estimated due date 03/06/2025, suspicion for VSD noted Problem List - at 20 weeks 5 days gestation - Back pain - Advanced maternal age - Previous - Intrauterine demise - Suspected ventricular septal defect Visit Date: 09/28/24 Last Updated by: Jonathon Lott MD Laboratory, Imaging, and Diagnostic Test Results - Date: 09/09/2024 - Hepatitis B: Negative - Hepatitis C: Negative - RPR: Non-reactive - Rubella: Non-immune - Blood group: A positive - Antibody screen: Negative - HIV: Negative - Gonorrhea: Negative - Chlamydia: Negative - Maternity 21: Negative for trisomy - Cystic fibrosis screening: Negative - Fragile X-gene: Negative - gender (blood test): Female - Ultrasound: - heartbeat: 149 bpm (normal) Visit Date: 08/03/24 Last Updated by: Jonathon Lott MD Corrected Estimated Due Date Summary [id number] by LMP01 Ultrasound #106/[id number] at us [id number] by US #1: 03/19/2025 Final [id number] for Final [id number] Sono (redated from LMP) Previous Section?No Office Procedures [facility] LOC & Office Proc's Nursing/Assessment Patient Status: Established Patient OB Clinic Nursing Assessment: Medication Reconciliation, Update PMH in EMR and Vital Signs OB Clinic Coordination of Care: AMA, Complex Care and Chronic Disease 1-5, Consent,records obtained, informed consent, Education Simp Pt/Fam, 1 Ins Authorization, Lab and Imaging orders, Results/Orders obtained and Staff clarify orders Special Needs: Heart tones Established Patient Charge Established Patient Point Assignment: 170 Established Patient Point Charge: EP Level 5 (160-above) Assessment & Plan Diagnosis / Problem List (1) Personal history of (corrected) congenital malformations of heart and circulatory system: Status: Acute (2) Supervision of with other poor reproductive or obstetric history, third trimester: Status: Acute (3) Supervision of high risk , unspecified, third trimester: Status: Acute Plan Problem List - Advanced maternal age - Term - History of children with congenital heart disease Assessment 42-year-old female, 6 para 4, at 38 weeks and 2 days gestation with advanced maternal age and history of prior children with congenital heart disease. Patient is at term gestation with normal heart rate of 147 bpm and reports active movement. No current contractions, leaking, or other obstetric complications reported. Patient scheduled for induction of labor. Plan - Induction of labor scheduled for March 02 - Patient to call provided number on induction date - Charge nurse will assign room and provide arrival time instructions - Patient given induction process instructions and contact information 1. Progress Reviewed gestational age at 38 weeks 2 days, growth, and heart rate at 147 bpm which is normal. Patient reports baby is active with good movement. 2. Instructed patient to monitor movements and report decreases immediately. 3. Testing Counseled on routine third-trimester labs per guidelines. Discussed potential need for ultrasound or monitoring based on risk factors. 4. Preeclampsia Precaution Educated on preeclampsia signs: severe headache, vision changes, right upper quadrant pain, sudden swelling. Advised urgent reporting of symptoms and discussed blood pressure monitoring if high risk. 5. Labor Precautions Reviewed labor signs: regular contractions, pelvic pressure, back pain, bleeding, or fluid leakage. Instructed to seek immediate care for these symptoms. Patient denies contractions, leaking, or other problems. 6. Lifestyle and Delivery Preparation Reinforced vitamins, nutrition, and safe activity. Discussed induction plan scheduled for March 02 with instructions provided for calling labor and delivery. Patient given contact number and instructions for induction process. 7. Psychosocial Support Assessed emotional well-being and offered resources for mental health or parenting support.
== END 2025-02-22 14:41 | disposition home or self-care (01) ==
LOC: HODSOBC 14:18
PROVIDERS: Supervising Provider Obstetrics & Gynecology; Visit Provider Obstetrics & Gynecology
DX: O09.293 Supervision of pregnancy with other poor reproductive or obstetric history, third trimester (principal); O09.523 Supervision of elderly multigravida, third trimester; Z3A.38 38 weeks gestation of pregnancy; Z82.79 Family history of other congenital malformations, deformations and chromosomal abnormalities
CPT/HCPCS: 99215; G0463